=== PATIENT | male | born 1945 | race African-American/Black ===

== ENCOUNTER 2018-09-06 11:15 | Emergency (ER) | payer OTHER ==
[2018-09-06 11:36] VITALS: BMI 34.0
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
[2018-09-06 13:23] LABS: BASO % 1.1 % (0-2.0); EOS % 5.3 % (0-4.5); HEMATOCRIT 52.5 % (35.4-49); HEMOGLOBIN 17.3 GM/dL (11.7-16.9); LYMPH % 36.7 % (8-40); MCH 32.6 pg (25.7-33.7); MEAN CELL VOLUME 98.8 fl (80-96); MEAN PLT VOLUME 9.2 fl (7.5-11.1); MONO % 16.3 % (3.8-10.2); NEUT % 40.6 % (42.8-82.8); PLATELET COUNT 189 K/MM3 (134-434); RBC 5.32 M/mm3 (4.00-5.60); RDW 14.6 % (11.9-15.9); WHITE BLOOD COUNT 6.4 K/mm3 (4.0-10.0)
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
[2018-09-06 13:59] LABS: ALBUMIN 3.7 g/dl (3.4-5.0); ALK PHOS 121 U/L (45-117); ANION GAP 9 MMOL/L (8-16); BILIRUBIN,TOTAL 0.3 mg/dL (0.2-1); BLOOD UREA NITROGEN 11 mg/dL (7-18); CALCIUM 10.2 mg/dL (8.5-10.1); CHLORIDE 106 mmol/L (98-107); CO2 23 mmol/L (21-32); CREATININE 0.8 mg/dL (0.55-1.3); GLUCOSE,RANDOM 134 mg/dL (74-106); POTASSIUM 4.2 mmol/L (3.5-5.1); SGOT/AST 17 U/L (15-37); SGPT/ALT 21 U/L (13-61); SODIUM 139 mmol/L (136-145); TOT PROT 7.7 g/dl (6.4-8.2)
--- NOTE | 2018-09-06 15:15 | EKG ---
Test Reason : Blood Pressure : / mmHG Vent. Rate : 103 BPM Atrial Rate : 103 BPM P-R Int : 144 ms QRS Dur : 078 ms QT Int : 334 ms P-R-T Axes : 072 031 076 degrees QTc Int : 437 ms POOR DATA QUALITY, INTERPRETATION MAY BE ADVERSELY AFFECTED SINUS TACHYCARDIA WITH OCCASIONAL PREMATURE VENTRICULAR COMPLEXES POSSIBLE LEFT ATRIAL ENLARGEMENT BORDERLINE ECG WHEN COMPARED WITH ECG OF 25-MAR-2005 17:01, NO SIGNIFICANT CHANGE WAS FOUND Confirmed by RIVERA INGRAM MD ([id number]) on 09/06/2018 3:15:13 PM Referred By: Confirmed By:RIVERA INGRAM MD
[2018-09-06 15:31] VITALS: BP 160/87; PULSE 96; TEMP 98
== END 2018-09-06 15:38 | disposition home or self-care (01) ==
LOC: JER 11:15
DX: Z04.1 Encounter for examination and observation following transport accident (principal); V47.0XXA Car driver injured in collision with fixed or stationary object in nontraffic accident, initial encounter; Y93.89 Activity, other specified; Y92.414 Local residential or business street as the place of occurrence of the external cause; I10 Essential (primary) hypertension; E78.5 Hyperlipidemia, unspecified; E11.9 Type 2 diabetes mellitus without complications
CPT/HCPCS: 36415; 70450-TC; 71046-TC-FY; 71111-TC-FY; 72125-TC; 80053; 82550; 84484; 85025; 93005; 93010; 99282-25

== ENCOUNTER 2018-11-12 12:04 | Emergency (ER) | payer OTHER | END 2018-11-12 15:15 | disposition home or self-care (01) | LOC: JER 12:04 ==

== ENCOUNTER 2019-02-03 14:47 | Emergency (ER) | payer OTHER ==
[2019-02-03 14:54] VITALS: BMI 32.8
[2019-02-03] MEDS ORDERED: ONDANSETRON 4 MG/2 ML VIAL IVPUSH ONE (15:51)
[2019-02-03] MEDS ORDERED: SODIUM CHLORIDE 0.9% 1000 ML INFUS.BAG IV ONE (15:51)
[2019-02-03] MEDS ORDERED: morphine CARPU-JECT 4 MG/1 ML DISP.SYRIN IVPUSH ONE (15:51)
[2019-02-03] MEDS ORDERED: morphine SULFATE 4 MG/ML VIAL ONE (15:54)
[2019-02-03] MEDS ORDERED: ONDANSETRON 4 MG/2 ML VIAL ONE (15:54)
[2019-02-03 16:13] LABS: BASO % 0.6 % (0-2.0); EOS % 1.7 % (0-4.5); HEMATOCRIT 44.3 % (35.4-49); HEMOGLOBIN 14.8 GM/dL (11.7-16.9); LYMPH % 24.2 % (8-40); MCH 32.9 pg (25.7-33.7); MCHC 33.4 g/dl (32.0-35.9); MEAN CELL VOLUME 98.6 fl (80-96); MEAN PLT VOLUME 8.4 fl (7.5-11.1); NEUT % 64.5 % (42.8-82.8); PLATELET COUNT 393 K/MM3 (134-434); RBC 4.49 M/mm3 (4.00-5.60); RDW 14.2 % (11.9-15.9); WHITE BLOOD COUNT 9.1 K/mm3 (4.0-10.0)
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
[2019-02-03 16:42] LABS: INR 1.44 (0.83-1.09)
[2019-02-03 16:43] LABS: ALBUMIN 3.2 g/dl (3.4-5.0); ALK PHOS 138 U/L (45-117); ANION GAP 13 MMOL/L (8-16); BILIRUBIN,TOTAL 0.5 mg/dL (0.2-1); CALCIUM 11.4 mg/dL (8.5-10.1); CHLORIDE 106 mmol/L (98-107); CO2 21 mmol/L (21-32); CREATININE 0.9 mg/dL (0.55-1.3); GLUCOSE,RANDOM 181 mg/dL (74-106); POTASSIUM 3.9 mmol/L (3.5-5.1); SGOT/AST 30 U/L (15-37); SGPT/ALT 51 U/L (13-61); SODIUM 140 mmol/L (136-145); TOT PROT 7.7 g/dl (6.4-8.2)
--- NOTE | 2019-02-03 17:10 | PDOC ---
History of Present Illness - General Chief Complaint: Pain Stated Complaint: HIP PAIN Time Seen by Provider: 02/03/19 14:55 History Source: Patient, Family, Spouse Exam Limitations: No Limitations - History of Present Illness Initial Comments: 02/03/19 17:11 [place] is a 73M with PMH AAA repair with stent January 22, quadruple bypass , DM, HTN, HLD presenting with bilateral hip pain. Patient had iliac repairs done on December 28 at [facility], and AAA repair with stenting on January 22. This morning was driving to work but was unable to get back into truck 2/2 pain, daughter took him home, went to rest in bed. Now having extreme pain to both hips starting today as well as a sensation of numbness and tingling in both legs as if both his legs were falling asleep. Denies recent fall or trauma, new medications taken. Denies fevers, chills, N/V, C/D, chest pain, headache, SOB, only pain his hips and back. Past History - Past Medical History Allergies/Adverse Reactions: Allergies Allergy/AdvReac Type Severity Reaction Status Date / Time No Known Allergies Allergy Verified 12/21/18 09:52 Home Medications: Ambulatory Orders Aspirin [Aspirin EC] 81 mg PO DAILY 03/18/15 Metoprolol Succinate [Toprol XL -] 25 mg PO DAILY 03/18/15 Rosuvastatin [Crestor -] 40 mg PO DAILY 03/18/15 Sertraline HCl [Zoloft -] 100 mg PO DAILY 03/18/15 metFORMIN HCL [Glucophage -] 1,500 mg PO DAILY 03/18/15 Methocarbamol [Robaxin -] 500 mg PO BID PRN #14 tablet 11/12/18 Quinapril HCl [Accupril] 10 mg PO DAILY 11/12/18 Anemia: No Asthma: No Cancer: No Cardiac Disorders: Yes (MA,ASHD) CVA: No COPD: No CHF: No Dementia: No Diabetes: Yes (NIDDM) GI Disorders: Yes (DIVERTICULITIS) Disorders: No HTN: Yes Hypercholesterolemia: Yes Liver Disease: No Seizures: No Thyroid Disease: No - Surgical History Abdominal Surgery: Yes (COLON RESECTION DUE TO DIVERTICULITIS, AAA repair 02/22) Appendectomy: No Cardiac Surgery: Yes (TRIPLE CABG) Cholecystectomy: No Lung Surgery: No Neurologic Surgery: Yes (NECK SPINAL FUSION) Orthopedic Surgery: No - Immunization History Immunization Up to Date: Yes - Suicide/Smoking/Psychosocial Hx Smoking History: Never smoked Have you smoked in the past 12 months: No If you are a former smoker, when did you quit?: 1984 Hx Alcohol Use: No Drug/Substance Use Hx: No Substance Use Type: Cocaine, Marijuana Hx Substance Use Treatment: (FORMER DRUG USE) Review of Systems - Review of Systems Constitutional: No: Symptoms Reported HEENTM: No: Symptoms Reported Respiratory: No: Symptoms reported Cardiac (ROS): No: Symptoms Reported ABD/GI: No: Symptoms Reported : No: Symptoms Reported Musculoskeletal: Yes: Joint Pain (bilateral hip pain at rest and with movement) Integumentary: No: Symptoms Reported Neurological: No: Symptoms reported Endocrine: No: Symptoms Reported Hematologic/Lymphatic: No: Symptoms Reported All Other Systems: Reviewed and Negative *Physical Exam - Vital Signs Last Vital Signs Temp Pulse Resp BP Pulse Ox 97.5 F L 100 H 20 150/90 95 02/03/19 14:49 02/03/19 14:49 02/03/19 14:49 02/03/19 14:49 02/03/19 14:49 - Physical Exam General Appearance: Yes: Nourished, Moderate Distress HEENT: positive: EOMI, JANETT. negative: Scleral Icterus (R), Scleral Icterus (L) Neck: positive: Supple. negative: Lymphadenopathy (R), Lymphadenopathy (L) Respiratory/Chest: positive: Lungs Clear. negative: Chest Tender, Respiratory Distress Cardiovascular: positive: Regular Rhythm, Regular Rate. negative: Edema, Murmur Vascular Pulses: Dorsalis-Pedis (R): 0, Doralis-Pedis (L): 0 Gastrointestinal/Abdominal: positive: Normal Bowel Sounds, Soft. negative: Tender, Pulsatile Mass Musculoskeletal: positive: Normal Inspection, Other (Full ROM at the hips with pain with active movement.). negative: CVA Tenderness, Vertebral Tenderness Extremity: positive: Other (Bilateral LE no palpable pulses, unable to find with Doppler or POCUS, non-tender to palpation, color normal, temp warm. Able to move both legs spontaneously down to toes, sensation intact to LT. Full ROM at hips/knees/ankles but limited at hips 2/2 pain. ) Integumentary: positive: Normal Color, Dry, Warm Neurologic: positive: Fully Oriented, Alert, Normal Mood/Affect ED Treatment Course - LABORATORY CBC & Chemistry Diagram: 02/03/19 16:00 02/03/19 16:00 - ADDITIONAL ORDERS Additional order review: Laboratory Results 02/03/19 02/03/19 02/03/19 16:00 16:00 16:00 PT with INR 17.00 H INR 1.44 H Sodium 140 Potassium 3.9 Chloride 106 Carbon Dioxide 21 Anion Gap 13 BUN 19.0 H Creatinine 0.9 Est GFR (CKD-EPI)AfAm 99.24 Est GFR (CKD-EPI)NonAf 85.63 Random Glucose 181 H Lactic Acid 3.4 H* Calcium 11.4 H Total Bilirubin 0.5 AST 30 ALT 51 Alkaline Phosphatase 138 H Creatine Kinase 60 Troponin I < 0.02 Total Protein 7.7 Albumin 3.2 L 02/03/19 16:00 RBC 4.49 MCV 98.6 H MCHC 33.4 RDW 14.2 MPV 8.4 Neutrophils % 64.5 D Lymphocytes % 24.2 D Monocytes % 9.0 Eosinophils % 1.7 Basophils % 0.6 - Medications Given in the ED: ED Medications Discontinued Medications Generic Name Dose Route Start Last Admin Trade Name Freq PRN Reason Stop Dose Admin Fentanyl 50 mcg 02/03/19 16:38 02/03/19 17:05 Sublimaze Injection - IVPUSH 02/03/19 16:39 50 mcg ONCE ONE Administration Morphine Sulfate 4 mg 02/03/19 15:51 02/03/19 16:07 Morphine Injection - IVPUSH 02/03/19 15:52 4 mg ONCE ONE Administration Ondansetron HCl 4 mg 02/03/19 15:51 02/03/19 16:11 Zofran Injection IVPUSH 02/03/19 15:52 4 mg ONCE ONE Administration Sodium Chloride 1,000 ml 02/03/19 15:51 02/03/19 16:11 Normal Saline - IV 02/03/19 15:52 1,000 ml ONCE ONE Administration Medical Decision Making - Critical Care Time Total Critical Care Time (minutes): 90 Critical Care Statement: The care of this patient involved high complexity decision making to prevent further life threatening deterioration of the patient 's condition and/or to evaluate & treat vital organ system(s) failure or risk of failure. - Medical Decision Making 02/03/19 17:11 Kle[place] Hill is a 73M with PMH AAA repair with stent January 22, quadruple bypass , DM, HTN, HLD presenting with bilateral hip pain. Patient presentation highly concerning for AAA stent failure vs. dissection. Placed 18G in R arm and 20G in L AC, labs sent, gave 4mg morphine for pain . Obtained CTA with iliac runoff before labs came back / to urgent evaluation of AAA stent as well as hx no renal disease and last Cr WNL. CTA showing 100% occlusion of the abdominal aorta below level of kidneys with no flow into iliacs. Requires urgent transfer to [facility] for thrombectomy. Dr. Gallagher spoke to Dr. Bellamy on-call who performed previous procedure, agrees for transfer to [facility]. Instructions to prep OR, ICU bed, ER to ER transfer, heparin drip on route. Gave 50mg Fentanyl for worsening hip and back pain but says it was not touching the pain. Labs show Cr 0.9. Lactate 3.4. Started 1L IV NS. Contacted [facility] transfer center to confirm. Transferred to ED to inform of transfer, spoke to Dr. Bhakta at [facility], confirmed tx and immediacy to OR. ED address is [facility] at [address] [facility] [address]. Transfer initiated, code red to [facility], patient transferred, signed off to EMS , family notified and aware. *DC/Admit/Observation/Transfer Diagnosis at time of Disposition: AAA (abdominal aortic aneurysm) Qualifiers: Presence of rupture: without rupture Qualified Code(s): I71.4 - Abdominal aortic aneurysm, without rupture - Discharge Dispostion Disposition: TRANSFER ACUTE CARE/OTHER HOSP Condition at time of disposition: Stable - Referrals Referrals: Keshawn Nelson MD [Primary Care Provider] - - Patient Instructions - Post Discharge Activity
[2019-02-03] MEDS ORDERED: HEPARIN NA (PORCINE) 5,000 UNITS/ML 1ML VIAL IVPUSH ONE (17:19)
[2019-02-03] MEDS ORDERED: HEPARIN NA (PORCINE) 5,000 UNITS/ML 1ML VIAL IVPUSH PRN ×2 (17:20)
[2019-02-03] MEDS ORDERED: HEPARIN INFUSION - 25,000 UNITS/500 ML INFUS.BAG IVPB ONE (17:23)
[2019-02-03] MEDS ORDERED: HEPARIN NA (PORCINE) 5,000 UNITS/ML 1ML VIAL ONE ×2 (17:23→17:24)
[2019-02-03] MEDS ORDERED: HEPARIN - 25,000 UNIT in SODIUM CHLORIDE 495 ML IV SCH (17:30)
[2019-02-03 18:53] VITALS: BP 183/72; PULSE 105; TEMP 98.2
--- NOTE | 2019-02-04 09:38 | EKG ---
Test Reason : Blood Pressure : / mmHG Vent. Rate : 110 BPM Atrial Rate : 110 BPM P-R Int : 158 ms QRS Dur : 080 ms QT Int : 346 ms P-R-T Axes : 055 012 082 degrees QTc Int : 468 ms SINUS TACHYCARDIA WITH OCCASIONAL PREMATURE VENTRICULAR COMPLEXES OTHERWISE NORMAL ECG WHEN COMPARED WITH ECG OF 12-NOV-2018 13:07, PREMATURE VENTRICULAR COMPLEXES ARE NOW PRESENT Confirmed by AVERY NICOLE, JIMMY ([id number]) on 02/04/2019 9:38:15 AM Referred By: Confirmed By:JIMMY VARELA MD
== END 2019-02-03 18:00 | disposition short-term general hospital (02) ==
LOC: JER 14:47
PROC: 3E033GC Introduction of Other Therapeutic Substance into Peripheral Vein, Percutaneous Approach (ICD-10-PCS; principal; 2019-02-03)
PROC: 3E033NZ Introduction of Analgesics, Hypnotics, Sedatives into Peripheral Vein, Percutaneous Approach (ICD-10-PCS; 2019-02-03)
DX: I71.4 Abdominal aortic aneurysm, without rupture (principal); E11.9 Type 2 diabetes mellitus without complications; I10 Essential (primary) hypertension; E78.00 Pure hypercholesterolemia, unspecified; Z87.891 Personal history of nicotine dependence; E78.5 Hyperlipidemia, unspecified
CPT/HCPCS: 36415; 75635-TC; 80053; 82550; 83605; 84484; 85025; 85610; 86850; 86900; 86901; 93005; 93010; 93971-TC; 99285-25; J1644; J7030